=== PATIENT | female | born 2005 | race African-American/Black ===

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

== ENCOUNTER 2023-12-23 07:13 | Emergency (ER) | payer BC ==
[~2023-12-23] VITALS: Ht 167.6 cm; Wt 59.0 kg
[2023-12-23] MEDS ORDERED: AMOX-CLAV 875-1 EACH PO (07:30)
== END 2023-12-23 07:52 | disposition home or self-care (01) ==
LOC: ED 07:13
DX: H66.91 Otitis media, unspecified, right ear (principal); J02.9 Acute pharyngitis, unspecified; Z98.890 Other specified postprocedural states